=== PATIENT | male | born 1990 | race Caucasian/White ===

== ENCOUNTER 2017-12-17 18:16 | Day surgery (SDC) | payer OTHER, SELFPAY ==
[2017-12-17 18:27] VITALS: BMI 19.6
--- NOTE | 2017-12-17 18:32 | DI.RAD.S_ITS ---
PROCEDURE: XR FINGER LT MIN 2V INDICATIONS: fracture vs nail bed injury. digit 4 TECHNIQUE: AP hand, 2 views of the 3 finger(s) acquired. COMPARISON: None. FINDINGS: Bones: Displaced fracture of the fourth distal phalange. Soft tissues: No suspicious soft tissue calcifications. IMPRESSION: Fourth distal phalange fracture. Dictated by: Mady Amaya MD, PhD on 12/17/2017 at 18:46 Approved by: Mady Amaya MD, PhD on 12/17/2017 at 18:47
[2017-12-17 21:48] VITALS: BP 123/72; PULSE 70; RESP 16; TEMP 37; O2SAT 98
--- NOTE | 2017-12-17 23:47 | DI.RAD.S_ITS ---
PROCEDURE: XR FINGER LT MIN 2V INDICATIONS: post reduction TECHNIQUE: AP hand, 2 views of the fourth left finger(s) acquired. COMPARISON: [facility], , XR FINGER LT MIN 2V, 12/17/2017, 18:14. FINDINGS: Bones: Distal fourth phalangeal fracture is an unchanged anatomic alignment when compared with the prereduction films. The distal fracture fragment remains posteriorly dislocated approximately 6 mm with respect to the proximal fracture fragment. Soft tissues: No suspicious soft tissue calcifications. IMPRESSION: Unchanged fracture dislocation of the fourth left phalanx. Dictated by: Valeria Ramirez M.D. on 12/18/2017 at 9:01 Approved by: Valeria Ramirez M.D. on 12/18/2017 at 9:02
[2017-12-18] MEDS: cephALEXin 250 MG PREPACK 1 BOTTLE MISC (00:32)
[2017-12-18] MEDS: CEFAZOLIN 1 GM VIAL IV (00:33)
[2017-12-18] MEDS: HYDROCODONE/ACET 5/325 PREPACK 1 BOTTLE MISC (00:33)
[2017-12-18 00:57] VITALS: BP 105/74; PULSE 76; RESP 16; O2SAT 99
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
--- NOTE | 2017-12-18 16:29 | SUR.OPER ---
Supine on padded OR bed, head on pillow, right arm secured on padded arm boards at <90 degrees abduction, legs uncrossed, safety belt at thigh, tape over blanket over lower legs. Left arm draped free on arm table
[2017-12-18 16:34] VITALS: BP 126/74; PULSE 55; RESP 15; TEMP 36.1; O2SAT 100; BMI 19.6
--- NOTE | 2017-12-18 16:34 | PM.PREOP ---
Pre-operative Note Interval Note Pre-op Check: Yes History & Physical exam performed today by Physician Changes: No
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
[2017-12-18] MEDS: LACTATED RINGERS 1,000 ML 42 ML IV (16:43)
[2017-12-18 17:30] VITALS: BP 103/63; PULSE 63; RESP 12; TEMP 36.4; O2SAT 100
[2017-12-18 17:35] VITALS: BP 105/57; PULSE 78; RESP 13; O2SAT 100
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
[2017-12-18 17:40] VITALS: BP 110/76; PULSE 57; RESP 12; TEMP 36.4; O2SAT 100
[2017-12-18 17:46] VITALS: BP 121/79; PULSE 56; RESP 15; TEMP 36.3; O2SAT 100
== END 2017-12-18 18:00 | disposition home or self-care (01) ==
LOC: ED 23:59 → OR 12-18 16:23
PROVIDERS: Emergency Provider Emergency Medicine; Visit Provider Orthopaedic Surgery
PROC: (CPT 26756; principal; 2017-12-18 16:20)
DX: S62.635B Displaced fracture of distal phalanx of left ring finger, initial encounter for open fracture (principal); V28.4XXA Motorcycle driver injured in noncollision transport accident in traffic accident, initial encounter; F17.210 Nicotine dependence, cigarettes, uncomplicated
CPT/HCPCS: 26756; 73140; 99282; J0690; J2250; J2704; J3010